=== PATIENT | female | born 1950 | race Caucasian/White ===

== ENCOUNTER → 2023-01-07 | Outpatient (CLI) | payer OTHER ==
[2023-01-07 17:46] LABS: Percent Saturation 13.8 % (15.0-50.0)
[2023-01-07 17:57] LABS: BASOPHILS ABSOLUTE AUTO 0.03 K/mm3 (0.00-0.23); BASOPHILS PERCENT AUTO 1 % (0-2); EOSINOPHILS ABSOLUTE AUTO 0.08 K/mm3 (0.00-0.68); EOSINOPHILS PERCENT AUTO 2 % (0-6); Hematocrit 36.9 % (33.0-51.0); Hemoglobin 13.1 g/dL (11.5-16.0); IMMATURE GRAN ABSOLUTE AUTO 0.02 K/mm3 (0.00-0.10); IMMATURE GRAN PERCENT AUTO 0 % (0-1); LYMPHOCYTES ABSOLUTE AUTO 1.19 K/mm3 (0.84-5.20); LYMPHOCYTES PERCENT AUTO 26 % (21-46); MONOCYTES PERCENT AUTO 7 % (4-13); Mean Corpuscular HGB 30.1 pg (26.0-34.0); Mean Corpuscular HGB Conc 35.5 g/dL (31.5-36.5); Mean Corpuscular Volume 85 fL (80-100); Mean Platelet Volume 11.3 fL (9.1-12.4); NEUTROPHILS PERCENT AUTO 64 % (41-73); Platelet Count 326 K/mm3 (150-400); RDW Coefficient Variation 13.2 % (11.7-14.2); RDW Standard Deviation 41.1 fL (35.1-46.3); Red Blood Cell Count 4.35 M/mm3 (3.80-5.20); White Blood Cell Count 4.52 K/mm3 (4.00-11.30)
== END | disposition home or self-care (01) ==
LOC: LAB SHORT 12:00 → LAB 12:00
PROVIDERS: Student in an Organized Health Care Education/Training Program
DX: D50.8 Other iron deficiency anemias (principal)
CPT/HCPCS: 82728; 83540; 83550; 85025

== ENCOUNTER 2023-02-26 16:11 | Inpatient (IN) | payer OTHER ==
[~2023-02-26] VITALS: Ht 147.3 cm; Wt 57.4 kg
[2023-02-26] MEDS ORDERED: FLUOXETINE HCL20 M1 PO (18:41)
[2023-02-26 20:11] LABS: BASOPHILS ABSOLUTE AUTO 0.03 K/mm3 (0.00-0.23); BASOPHILS PERCENT AUTO 1 % (0-2); EOSINOPHILS ABSOLUTE AUTO 0.06 K/mm3 (0.00-0.68); EOSINOPHILS PERCENT AUTO 1 % (0-6); Hematocrit 28.9 % (33.0-51.0); Hemoglobin 9.3 g/dL (11.5-16.0); IMMATURE GRAN ABSOLUTE AUTO 0.01 K/mm3 (0.00-0.10); IMMATURE GRAN PERCENT AUTO 0 % (0-1); LYMPHOCYTES ABSOLUTE AUTO 1.07 K/mm3 (0.84-5.20); LYMPHOCYTES PERCENT AUTO 23 % (21-46); MONOCYTES ABSOLUTE AUTO 0.42 K/mm3 (0.16-1.47); MONOCYTES PERCENT AUTO 9 % (4-13); Mean Corpuscular HGB Conc 32.2 g/dL (31.5-36.5); Mean Corpuscular Volume 84 fL (80-100); Mean Platelet Volume 9.6 fL (9.1-12.4); NEUTROPHILS ABSOLUTE AUTO 2.99 K/mm3 (1.96-9.15); NEUTROPHILS PERCENT AUTO 65 % (41-73); Platelet Count 406 K/mm3 (150-400); RDW Coefficient Variation 13.5 % (11.7-14.2); RDW Standard Deviation 40.9 fL (35.1-46.3); Red Blood Cell Count 3.45 M/mm3 (3.80-5.20); White Blood Cell Count 4.58 K/mm3 (4.00-11.30)
[2023-02-26 21:01] LABS: Bun/Creatinine Ratio 27.9 (12.0-20.0); Calcium, Blood 8.4 mg/dL (8.5-10.1); Creatinine, Blood 0.61 mg/dL (0.40-1.00); Potassium, Blood 3.4 mmol/L (3.5-5.5)
[2023-02-26 21:08] LABS: International Normalized Ratio 1.02; Prothrombin Time Results 10.7 Sec (9.7-11.5)
[2023-02-26 23:27] VITALS: BP 151/94
--- NOTE | 2023-02-26 23:59 | NUR ---
PATIENT IS A NEW ADMIT FROM THE ED. AXOX 4 AND ARRIVED VIA W/C INDEPENDENT TRANSFER TO BED. DENIES PAIN, SOB, AND N/V. ROOM AIR. REPORTED SHE DID COLON CLEANSE 02/24 & 02/25 PER HER PROVIDER. NORMAL SALINE INFUSING @ 75 mL/HR FROM ED. PROVIDER CONSULT CALLED INTO DR TREVER PRIEST ([facility]). TELEMETRY PLACED NSR 84. ORIENTED TO ROOM AND CALL LIGHT SYSTEM. REPORTS WANTS TO SLEEP AFTER ASSESSMENT. WCTM.
--- NOTE | 2023-02-27 00:26 | NUR ---
DR PRIEST IN ROOM FOR PATIENT CONSULT. REPORTS HE WILL PUT IN ORDERS AT THIS TIME. TM
[2023-02-27 02:13] LABS: BASOPHILS ABSOLUTE AUTO 0.02 K/mm3 (0.00-0.23); BASOPHILS PERCENT AUTO 0 % (0-2); EOSINOPHILS ABSOLUTE AUTO 0.04 K/mm3 (0.00-0.68); EOSINOPHILS PERCENT AUTO 1 % (0-6); Hematocrit 28.6 % (33.0-51.0); Hemoglobin 9.2 g/dL (11.5-16.0); IMMATURE GRAN ABSOLUTE AUTO 0.01 K/mm3 (0.00-0.10); IMMATURE GRAN PERCENT AUTO 0 % (0-1); LYMPHOCYTES ABSOLUTE AUTO 1.16 K/mm3 (0.84-5.20); LYMPHOCYTES PERCENT AUTO 22 % (21-46); MONOCYTES ABSOLUTE AUTO 0.47 K/mm3 (0.16-1.47); MONOCYTES PERCENT AUTO 9 % (4-13); Mean Corpuscular HGB 26.8 pg (26.0-34.0); Mean Corpuscular HGB Conc 32.2 g/dL (31.5-36.5); Mean Corpuscular Volume 83 fL (80-100); Mean Platelet Volume 9.5 fL (9.1-12.4); NEUTROPHILS ABSOLUTE AUTO 3.69 K/mm3 (1.96-9.15); NEUTROPHILS PERCENT AUTO 69 % (41-73); Platelet Count 397 K/mm3 (150-400); RDW Coefficient Variation 13.6 % (11.7-14.2); Red Blood Cell Count 3.43 M/mm3 (3.80-5.20); White Blood Cell Count 5.39 K/mm3 (4.00-11.30)
[2023-02-27 02:41] LABS: Albumin, Blood 3.2 g/dL (3.4-5.0); Bilirubin, Total 0.4 mg/dL (0.1-1.0); Bun/Creatinine Ratio 21.8 (12.0-20.0); Calcium, Blood 8.3 mg/dL (8.5-10.1); Creatinine, Blood 0.55 mg/dL (0.40-1.00); Globulin, Blood 3.2 g/dL (2.2-4.0); Total Protein, Blood 6.4 g/dL (6.4-8.2)
[2023-02-27 06:14] LABS: Percent Saturation 6.9 % (15.0-50.0)
[2023-02-27 07:00] VITALS: BP 183/89
[2023-02-27 08:54] LABS: Hematocrit 27.9 % (33.0-51.0)
[2023-02-27 14:09] LABS: Hematocrit 28.5 % (33.0-51.0); Hemoglobin 9.3 g/dL (11.5-16.0)
[2023-02-27 14:50] VITALS: BP 166/82
[2023-02-27 19:03] LABS: Albumin, Blood 3.7 g/dL (3.4-5.0); Anion Gap 8 mmol/L (6-16); Blood Urea Nitrogen 6 mg/dL (8-24); Bun/Creatinine Ratio 10.8 (12.0-20.0); CO2, Blood 23 mmol/L (21-32); Calcium, Blood 8.7 mg/dL (8.5-10.1); Chloride, Blood 108 mmol/L (98-108); Creatinine, Blood 0.56 mg/dL (0.40-1.00); Glomerular Filtration Rate 98 (60-); Glucose, Blood 99 mg/dL (70-99); Phosphorus, Blood 2.3 mg/dL (2.5-4.9); Potassium, Blood 3.6 mmol/L (3.5-5.5); Sodium, Blood 139 mmol/L (136-145)
[2023-02-27 19:25] VITALS: BP 152/78
--- NOTE | 2023-02-27 19:39 | NUR ---
SHIFT SUMMARY PT A&OX4, VSS/RA, INDEPENDENT IN ROOM/TO BRP, VOIDING/BMs, TELE NSR 90. DRINKING GOLYTELY, PLAN FOR COLONOSCOPY APPROX 0900 TOMORROW. REPORT TO ARSLAN FAGAN.
[2023-02-27 19:56] LABS: Hematocrit 31.5 % (33.0-51.0)
--- NOTE | 2023-02-27 23:30 | NUR ---
PT HAS COMPLEETED WHOLE BOTTLE OF THE GOLYTLE, BOWEL MOVMENTS ARE NOW CLEAR PINK TINGED LIQ. PT READY TO REST, CALL LIGHT IN REACH.
[2023-02-28] VITALS (19 sets, daily range): BP systolic 108–179; BP diastolic 50–94
--- NOTE | 2023-02-28 04:03 | NUR ---
PT RESTING IN BED, PT STILL MAKING FREQUENT TRIPS TO BR, ALSO WHEN PT GETS UP IV ALRM SOUND EVEN WITH ARM BOARD ON. PT ALSERT AND ORIENTED STEADY ON HER FEET. CALL LIGHT IN REACH.
[2023-02-28 05:43] LABS: Hematocrit 24.1 % (33.0-51.0); Hemoglobin 7.8 g/dL (11.5-16.0)
[2023-02-28 06:21] LABS: Albumin, Blood 2.8 g/dL (3.4-5.0); Anion Gap 10 mmol/L (6-16); Blood Urea Nitrogen 5 mg/dL (8-24); Bun/Creatinine Ratio 8.9 (12.0-20.0); CO2, Blood 21 mmol/L (21-32); Calcium, Blood 8.1 mg/dL (8.5-10.1); Chloride, Blood 110 mmol/L (98-108); Creatinine, Blood 0.56 mg/dL (0.40-1.00); Glomerular Filtration Rate 98 (60-); Glucose, Blood 83 mg/dL (70-99); Magnesium, Blood 1.7 mg/dL (1.6-2.4); Phosphorus, Blood 2.5 mg/dL (2.5-4.9); Potassium, Blood 2.9 mmol/L (3.5-5.5); Sodium, Blood 141 mmol/L (136-145)
--- NOTE | 2023-02-28 11:17 | NUR ---
IV SITE RAC FLUSHED WITH 10NS/PATENT.
--- NOTE | 2023-02-28 11:43 | NUR ---
02/28/23 1143 Mani Augustin HISTORY, CHART, MEDICATIONS AND ALLERGIES REVIEWED BEFORE START OF PROCEDURE. PATIENT CONFIRMS NPO STATUS AND AGREES WITH SCHEDULED PROCEDURE. 3-LEAD EKG REVIEWED WITH PHYSICIAN PRIOR TO START OF PROCEDURE. MONITOR INTACT WITH CONTINUOUS PULSE OXIMETRY,CAPNOGRAPHY, 3-LEAD EKG, INTERMITTENT BP. SUPPLEMENTAL O2 TO BE TITRATED THROUGHOUT PROCEDURE TO MAINTAIN O2 SATURATION ABOVE 90%. PATIENT DETERMINED TO BE ASA APPROPRIATE FOR PROPOFOL SEDATION PRIOR TO START OF PROCEDURE BY DR. PRIEST.
[2023-02-28 15:32] LABS: Hemoglobin 9.4 g/dL (11.5-16.0)
[2023-02-28 15:51] LABS: Albumin, Blood 3.4 g/dL (3.4-5.0); Anion Gap 8 mmol/L (6-16); Blood Urea Nitrogen 3 mg/dL (8-24); Bun/Creatinine Ratio 5.6 (12.0-20.0); CO2, Blood 22 mmol/L (21-32); Calcium, Blood 8.7 mg/dL (8.5-10.1); Chloride, Blood 107 mmol/L (98-108); Creatinine, Blood 0.54 mg/dL (0.40-1.00); Glomerular Filtration Rate 99 (60-); Glucose, Blood 98 mg/dL (70-99); Potassium, Blood 3.6 mmol/L (3.5-5.5); Sodium, Blood 137 mmol/L (136-145)
--- NOTE | 2023-02-28 19:49 | NUR ---
NO ACUTE EVENTS THIS SHIFT. PT AAOX4. CALM AND COOPERATIVE. INDEPENDENT IN ROOM.
--- NOTE | 2023-03-01 04:24 | NUR ---
SHIFT SUMMERY, PT WANTING TO REST WAS UP ALOT LAST NOC DUE TO GOLYTLE AND IV PUMP BEEPING FROM AC IV. IV TO AC LEAKING AND WAS REMOVED. IV INFUSING TO LEFT HAND. PT SLEPT FOR SOME TIME BUT IV BEEPED AND PT AWAKE, PT REQUESTED SOME TYLENOL. PT STATED RECTAL AREA VERY PAINFULL, PT STATED THERE IS A LOT OF PRESURE. GAVE PT HER TYLENOL AND PT TRYING TO SLEEP A LITTLE MORE. CALL LIGHT IN REACH PT STEADY ON FEET UP AT [place] TO BR.
[2023-03-01 04:59] VITALS: BP 152/75
[2023-03-01 05:27] LABS: Hematocrit 26.2 % (33.0-51.0); Hemoglobin 8.3 g/dL (11.5-16.0)
[2023-03-01 05:56] LABS: Albumin, Blood 2.8 g/dL (3.4-5.0); Anion Gap 3 mmol/L (6-16); Blood Urea Nitrogen 6 mg/dL (8-24); Bun/Creatinine Ratio 9.6 (12.0-20.0); CO2, Blood 24 mmol/L (21-32); Calcium, Blood 8.6 mg/dL (8.5-10.1); Chloride, Blood 114 mmol/L (98-108); Creatinine, Blood 0.62 mg/dL (0.40-1.00); Glomerular Filtration Rate 96 (60-); Glucose, Blood 99 mg/dL (70-99); Magnesium, Blood 2.2 mg/dL (1.6-2.4); Phosphorus, Blood 3.7 mg/dL (2.5-4.9); Potassium, Blood 3.5 mmol/L (3.5-5.5); Sodium, Blood 141 mmol/L (136-145)
[2023-03-01 07:10] VITALS: BP 174/77
[2023-03-01 09:04] VITALS: BP 156/77
[2023-03-01 15:49] VITALS: BP 140/75
[2023-03-01] MEDS ORDERED: AMLO5 PO (17:42)
--- NOTE | 2023-03-01 17:51 | NUR ---
SUMMARY- NO ACUTE EVENTS THIS SHIFT. INDEPENDENT IN ROOM. CALLS APPROPRIATELY. AAOX4. WAITING DC ORDERS.
== END 2023-03-01 18:30 | disposition home or self-care (01) | DRG 375 ==
LOC: ER 16:11 → MEDS 16:12 → ENPENDDIS 03-01 18:15 → MEDS 03-01 18:30
PROVIDERS: Internal Medicine; Internal Medicine Gastroenterology; Student in an Organized Health Care Education/Training Program; ADMIT Internal Medicine
PROC: 0DBP8ZX Excision of Rectum, Via Natural or Artificial Opening Endoscopic, Diagnostic (ICD-10-PCS; principal; 2023-02-28 10:00)
DX: C20 Malignant neoplasm of rectum (principal); K62.5 Hemorrhage of anus and rectum; E87.6 Hypokalemia; E83.39 Other disorders of phosphorus metabolism; E83.42 Hypomagnesemia; D50.0 Iron deficiency anemia secondary to blood loss (chronic); F41.8 Other specified anxiety disorders; K59.09 Other constipation; Z79.899 Other long term (current) drug therapy; Z90.710 Acquired absence of both cervix and uterus; Z98.49 Cataract extraction status, unspecified eye; Z90.722 Acquired absence of ovaries, bilateral
CPT/HCPCS: 36415; 71260; 72197; 74177; 80048; 80053; 80069; 82272; 82378; 82728; 83540; 83550; 83735; 85014; 85018; 85025; 85610; 85730; 88305; 96374; 99285-25; A9270; A9579; C9113; J2704; J2916; J3475; J3480; J7030; J7120; Q9967

== ENCOUNTER 2023-04-01 09:08 | Day surgery (SDC) | payer OTHER ==
[~2023-04-01] VITALS: Ht 147.3 cm; Wt 50.9 kg
[2023-04-01] VITALS (10 sets, daily range): BP systolic 119–143; BP diastolic 65–93
[~2023-04-01 09:08] MED LIST: AMLO5 PO; FERSU300 PO; FLUOXETINE HCL20 M1 PO; Vitamin C100 M1 PO
--- NOTE | 2023-04-01 12:07 | NUR ---
DISCHARGE NOTE PT A&OX4, BREATHING RA, NO COMPLAINTS, TOLERATING PO FLUIDS AND FOOD. AT BEDSIDE. PAIN RX GIVEN TO IN DISCHARGE PACKET FOLDER. Discharge instructions reviewed with patient. Patient verbalizes understanding. Copy given to patient to take home. Dressing to procedure site clean, dry, intact with no visible drainage, swelling, erythema or bruising noted. Discharged via wheelchair to private car for ride home.
== END 2023-04-01 12:12 | disposition home or self-care (01) ==
LOC: ORSCMMR 09:08 → ORD 10:30 → ORSCMMR 12:12
PROVIDERS: Surgery
PROC: 0JH63WZ Insertion of Totally Implantable Vascular Access Device into Chest Subcutaneous Tissue and Fascia, Percutaneous Approach (ICD-10-PCS; principal; 2023-04-01 10:30)
PROC: 05HM33Z Insertion of Infusion Device into Right Internal Jugular Vein, Percutaneous Approach (ICD-10-PCS; principal; 2023-04-01 10:30)
PROC: B543ZZA Ultrasonography of Right Jugular Veins, Guidance (ICD-10-PCS; principal; 2023-04-01 10:30)
DX: C20 Malignant neoplasm of rectum (principal); I10 Essential (primary) hypertension; F32.A Depression, unspecified; D50.9 Iron deficiency anemia, unspecified; Z79.899 Other long term (current) drug therapy
CPT/HCPCS: 77001; A9270; C1788; J0690; J1100; J1642; J2250; J2370; J2405; J2704; J3010; J7120